=== PATIENT | female | born 2000 | race African-American/Black ===

== ENCOUNTER → 2018-05-21 | Outpatient (CLI) | payer MEDICAID, OTHER ==
--- NOTE | 2018-05-21 13:41 | RAD ---
Obstetrical ultrasound, 05/21/2018: HISTORY: Uterine size/date discrepancy There is a single intrauterine fetus in a transverse orientation. The biparietal diameter measures 4.7 cm compatible with a gestational age of 20-21 weeks. The femur length measurement suggests a gestational age of 21-22 weeks. The average gestational age based on all of the measurements is 20 weeks and 6 days yielding a sonographic EDC of 10/02/2018. Normal activity and heart motion are seen. There is a four-chamber heart with a heart rate of 152 bpm. Fluid is identified in the bladder and stomach. The visualized portions of the spine and kidneys are unremarkable. A three-vessel umbilical cord is identified with a normal cord insertion site. A normal amount of amniotic fluid is evident with the MARINA calculated at 10.2. The inferior margin of the placenta currently lies approximately 1-2 cm from the internal cervical os. The cervix measures 4.8 cm in length. IMPRESSION: 1. Single viable intrauterine fetus of 20-21 weeks gestational age as described above. 2. Low-lying placenta. Sonographic follow-up is suggested. Electronically signed by: Ignacio Green MD (05/21/2018 1:38 PM) [facility]
== END | disposition home or self-care (01) ==
LOC: US 09:30
PROVIDERS: ATTEND Obstetrics & Gynecology
DX: O26.842 Uterine size-date discrepancy, second trimester (principal); Z3A.20 20 weeks gestation of pregnancy
CPT/HCPCS: 76805

== ENCOUNTER → 2019-08-27 | Outpatient (CLI) | payer OTHER ==
--- NOTE | 2019-08-27 17:21 | RAD ---
OB ultrasound greater than 14 weeks 08/27/2019 Clinical History: Second trimester with Size date discrepancy. Technique: A real-time ultrasound examination of the gravid uterus was performed. Multiple images were obtained. Findings: There is a single living IUP. The fetus is in acephalic position. cardiac and somatic activity is seen. The heart rate is 152 beats per minutes. The maternal cervix is closed. It measures 5.9 cm in length. The placenta is in a fundal/posterior position. No abnormality is seen. The amniotic fluid volume is within normal limits. Neither maternal ovary is visualized. The following measurements were obtained: BPD 5.03cm 21 weeks to days HC 18.9 cm 21weeks 1 days AC 16.55 cm 21weeks 4 days FL 3.76 cm 22 weeks 0 days The estimated gestational age by ultrasound is 21 weeks 4 days plus or minus a standard deviation of 10 days. The estimated date of delivery by ultrasound is 01/03/2020. No abnormality is seen. Specifically the stomach, bladder, kidneys, 3 vessel cord and cord insertion, four-chamber heart, cisterna magna, cerebellum, nose/mouth, spine and extremities are well-visualized and within normal limits. Impression: Single living IUP with an estimated gestational age by ultrasound of 21 weeks4 days +/- a standard deviation of 10 days. The estimated date of delivery by ultrasound is01/03/2020. Electronically signed by: Alden Thomas MD (08/27/2019 5:18 PM) [id number]
== END | disposition home or self-care (01) ==
LOC: US 08:50
PROVIDERS: ATTEND Obstetrics & Gynecology
DX: O26.842 Uterine size-date discrepancy, second trimester (principal); Z32.01 Encounter for pregnancy test, result positive; Z3A.21 21 weeks gestation of pregnancy
CPT/HCPCS: 76805

== ENCOUNTER 2020-10-11 12:30 | Emergency (ER) | payer OTHER | END 2020-10-11 19:22 | disposition left against medical advice (07) | LOC: ER 12:30 | DX: K08.89 Other specified disorders of teeth and supporting structures (principal); Z53.21 Procedure and treatment not carried out due to patient leaving prior to being seen by health care provider ==